=== PATIENT | female | born 1965 | race Caucasian/White ===

== ENCOUNTER 2017-09-28 07:03 | Inpatient (IN) | payer BC ==
[2017-09-28] MEDS ORDERED: cefOXitin IV 2 gm in Dextrose 2 GM/50 ML BAG IVPB ONE (11:02)
[2017-09-28] MEDS ORDERED: Propofol 10 mg/ml Inj (20 ML) ONE (11:17)
[2017-09-28] MEDS ORDERED: Midazolam 2 MG/2 ML VIAL ONE (11:17)
[2017-09-28] MEDS ORDERED: Vasopressin 20 Units/ml Inj ONE (11:30)
[2017-09-28] MEDS ORDERED: Phenylephrine 10 mg/ml Inj ONE (11:39)
[2017-09-28] MEDS ORDERED: Clindamycin 2% Vaginal Cream(40 gm) ONE (11:58)
[2017-09-28] MEDS ORDERED: Rocuronium 10 mg/ml (5 ml) ONE (13:01)
--- NOTE | 2017-09-28 13:20 | PCM.SURG1 ---
Surgeon's Initial Post Op Note - Surgeon's Notes Surgeon: Dr. Maldonado Pantograph Transferrer: Dr. Villarreal Type of Anesthesia: General Endo Pre-Operative Diagnosis: pelvic organ prolapse, pelvic pain Operative Findings: Uterus approximately 9cm sized, stage III uterine prolapse, bilateral ureteral jets were visualized. Normal appearing ovaries and anatomy. Post-Operative Diagnosis: same Operation Performed: Transvaginal hysterectomy, laparoscopic BSO, cystoscopy Specimen/Specimens Removed: uterus, cervix, bilateral fallopian tubes and ovaries Estimated Blood Loss: EBL {In ML}: 100 Blood Products Given: N/A Drains Used: No Drains Post-Op Condition: Good Date of Surgery/Procedure: 09/28/17 Time of Surgery/Procedure: 11:30
[2017-09-28] MEDS ORDERED: HYDROmorphone 0.5 mg/0.5 ml ISec IVP PRN ×3 (13:30→13:39)
[2017-09-28] MEDS: cefOXitin IV 2 gm in Dextrose 2 GM/50 ML BAG IVPB SCH (18:02)
--- NOTE | 2017-09-29 01:20 | OP ---
PROCEDURE DATE: 09/28/2017 SURGEON: Paige Maldonado MD STREET CAR INSPECTOR: Manjinder Villarreal MD TYPE OF ANESTHESIA: General endotracheal. PREOPERATIVE DIAGNOSES: Pelvic organ prolapse, pelvic pain. POSTOPERATIVE DIAGNOSES: Pelvic organ prolapse, pelvic pain. INTRAOPERATIVE FINDINGS: Uterus approximately 9 cm in size, stage III uterine prolapse. Bilateral ureteral jets were visualized. Normal-appearing ovaries and anatomy. SURGERY PERFORMED: Transvaginal hysterectomy, laparoscopic bilateral salpingo-oophorectomy, and cystoscopy. SPECIMENS REMOVED: Uterus, cervix, bilateral fallopian tubes and ovaries. ESTIMATED BLOOD LOSS: 100 mL. BLOOD PRODUCTS: There were no blood products given. DRAINS: There were no drains used. POSTOPERATIVE CONDITION: Stable. ADDITIONAL COMMENTS: All lap counts and instrument counts were correct x3. DESCRIPTION OF PROCEDURE: After all relevant documentation was reviewed and signed by MD, the patient was taken back to the OR room. She was prepped and draped in the usual sterile fashion after being placed in lithotomy position. After Guillen catheter was introduced in the bladder, a weighted speculum was then placed in the vagina. Once the cervix was identified, it was grabbed with a single-tooth tenaculum, and Pitressin was then injected circumferentially in the cervicovaginal junction. An anterior incision was made with the use of a Bovie, and the bladder was gently dissected off of the cervix. This incision was then extended circumferentially around the cervix. A posterior colpotomy was then made with the use of Georges scissors, and the weighted speculum was then again removed and replaced. After the bladder was mobilized, attention was then placed to the bilateral uterosacral ligaments which were grabbed with the use of Alba clamps, cut with Georges scissors and then suture ligated bilaterally. The same technique was then used sequentially for bilateral cardinal ligaments, bilateral uterine arteries and then finally bilateral adnexa. All of the pedicles were examined for hemostasis, and excellent hemostasis was noted. The vaginal cuff was then reapproximated with the use of 0 Vicryl in a running locked fashion in a 2-layer closure. The uterosacral ligaments were tied together to ensure proper vaginal wall lift. Now, we proceeded with the laparoscopic portion of the procedure where attention was then placed on the abdomen, and a 5-mm umbilical port was done with the use of scalpel. The laparoscope was then introduced and bilateral lower quadrant 5-mm ports were placed under direct visualization. Examination of the vaginal cuff revealed excellent hemostasis. Attention was then placed to the right fallopian tube and ovary which was grabbed with an atraumatic grasper and then cauterized and cut with the use of LigaSure. With the help of a 5-mm EndoCatch bag, the specimen was placed in the bag and removed. This procedure was also repeated on the left side. Examination of the pedicles under low pressure revealed no active bleeding. FloSeal was then placed over the vaginal cuff and pedicles, and the pneumoperitoneum was then evacuated. The ports were then closed with the use of 4-0 Monocryl in a subcuticular fashion and covered with the use of Dermabond. Attention was then placed. We now proceeded with the cystoscopy portion of the procedure where the Guillen was removed, and the bladder was intact. Bilateral ureteral jets were visualized, and the cystoscope was then removed. The vagina was then packed, and a new Guillen catheter was then introduced. Excellent hemostasis was noted. The patient was then awoken from general anesthesia and taken back to the recovery room in stable condition. Paige Maldonado MD
[2017-09-29] MEDS: cefOXitin IV 2 gm in Dextrose 2 GM/50 ML BAG IVPB SCH ×2 (03:08→11:24)
[2017-09-29 07:23] LABS: BASO # 0.1 K/uL (0.0-0.2); BASO % 0.8 % (0.0-2.0); EOS # 0.2 K/uL (0.0-0.7); EOS % 1.8 % (0.0-4.0); HEMOGLOBIN 12.2 g/dL (11.0-16.0); LYMPH # 2.2 K/uL (1.0-4.3); LYMPH % 22.1 % (20.0-40.0); MEAN CELL VOLUME 83.9 fL (81.0-99.0); MEAN CORPUSCULAR HEMOGLOBIN 28.3 pg (27.0-31.0); MEAN CORPUSCULAR HGB CONC 33.7 g/dL (33.0-37.0); MEAN PLATELET VOLUME 8.7 fL (7.2-11.7); MONO # 0.5 K/uL (0.0-0.8); NEUT % 70.3 % (50.0-75.0); RBC 4.33 Mil/uL (3.80-5.20); RED CELL DISTRIBUTION WIDTH 14.4 % (11.5-14.5)
[2017-09-29 07:46] LABS: BLOOD UREA NITROGEN 11 mg/dL (7-17); CALCIUM 8.7 mg/dl (8.6-10.4); GFR AFRICAN-AMERICAN > 60; GFR NON-AFRICAN AMERICAN > 60
[2017-09-29 08:26] VITALS: BP 133/72; PULSE 67; RESP 18; TEMP 98.5; O2SAT 96
== END 2017-09-29 14:40 | disposition home health service (06) | DRG 743 ==
LOC: C.SDS 07:03 → C.9S 13:30 → C.6T 14:56
PROVIDERS: ADMIT Obstetrics & Gynecology; ATTEND Obstetrics & Gynecology
PROC: 0UT2FZZ Resection of Bilateral Ovaries, Via Natural or Artificial Opening With Percutaneous Endoscopic Assistance (ICD-10-PCS; 2017-09-28)
PROC: 0UT7FZZ Resection of Bilateral Fallopian Tubes, Via Natural or Artificial Opening With Percutaneous Endoscopic Assistance (ICD-10-PCS; 2017-09-28)
PROC: 0TJB8ZZ Inspection of Bladder, Via Natural or Artificial Opening Endoscopic (ICD-10-PCS; 2017-09-28)
PROC: 0UT9FZZ Resection of Uterus, Via Natural or Artificial Opening With Percutaneous Endoscopic Assistance (ICD-10-PCS; principal; 2017-09-28 10:00)
DX: N81.4 Uterovaginal prolapse, unspecified (principal); N88.8 Other specified noninflammatory disorders of cervix uteri; N85.00 Endometrial hyperplasia, unspecified; N83.292 Other ovarian cyst, left side; N83.291 Other ovarian cyst, right side